=== PATIENT | male | born 1985 | race Caucasian/White ===

== ENCOUNTER 2019-11-27 03:31 | Emergency (ER) | payer SELFPAY ==
[2019-11-27 03:38] VITALS: BP 136/91
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
== END 2019-11-27 04:56 | disposition home or self-care (01) ==
LOC: ED 03:31
DX: S60.512A Abrasion of left hand, initial encounter (principal); V47.0XXA Car driver injured in collision with fixed or stationary object in nontraffic accident, initial encounter; Y93.9 Activity, unspecified; Y92.410 Unspecified street and highway as the place of occurrence of the external cause; F10.129 Alcohol abuse with intoxication, unspecified
CPT/HCPCS: 99282